=== PATIENT | male | born 1985 | race Caucasian/White ===

== ENCOUNTER 2018-12-09 08:40 | Emergency (ER) | payer OTHER ==
[~2018-12-09] VITALS: Ht 177.8 cm; Wt 68.0 kg
[2018-12-09] MEDS ORDERED: NYST237S MT (09:56)
== END 2018-12-09 10:05 | disposition home or self-care (01) ==
LOC: ER 08:40
DX: K12.1 Other forms of stomatitis (principal); F17.200 Nicotine dependence, unspecified, uncomplicated
CPT/HCPCS: 82947; 99283